=== PATIENT | male | born 1990 | race American Indian/Alaskan Native ===

== ENCOUNTER 2017-09-24 01:29 | Emergency (ER) | payer OTHER ==
[2017-09-24 01:47] VITALS: BP 168/100
[2017-09-24] MEDS ORDERED: ATROVENT IH ONE ×2 (01:56→02:18)
[2017-09-24] MEDS ORDERED: PROVENTIL IH ONE ×4 (01:56→04:12)
[2017-09-24] MEDS ORDERED: MAGNESIUM SULFATE 2GM/50ML 2 GM/50 ML BAG IV ONE ×2 (03:57→04:01)
--- NOTE | 2017-09-24 05:09 | Emergency Department Report ---
ED Shortness of Breath HPI - General Chief Complaint: Adult Asthma Stated Complaint: ASTHMA Time Seen by Provider: 09/24/17 05:03 Source: patient, family Mode of arrival: Ambulatory Limitations: No Limitations, Physical Limitation (patient is very short of breath and has mild autism which limits his ability to give appropriate history) - History of Present Illness Initial Comments: 27-year-old male with the chief complaint of shortness of breath and wheezing. His mother is here with him. According to the patient, he's been having shortness of breath and wheezing since Sunday. That is 2 days ago. Patient has audible wheezing and is in respiratory distress. Respiratory therapist is here and started him immediately on 5 mg of albuterol and point follow-up for .5 milligrams of Atrovent. Mr. Jade has mild autism, per his mother. He is currently out of albuterol and all his medicine for his asthma. They are in between doctors. MD Complaint: shortness of breath -: days(s) (2) Severity: severe Known History Of: asthma Context: recent URI - Related Data Previous Rx's Medication Instructions Recorded Last Taken Type ALBUTEROL Inhaler [ProAir HFA 2 puff IH QID PRN #1 box 09/24/17 Unknown Rx Inhaler] ALBUTEROL NEB's [Proventil 0.083% 2.5 mg IH QID PRN #1 neb 09/24/17 Unknown Rx NEBS] Fluticasone (Nf) [Flovent 220 2 puff IH BID #1 puff 09/24/17 Unknown Rx MCG/PUFF HFA] Ipratropium [Atrovent] 0.5 mg IH Q6HRT #1 box 09/24/17 Unknown Rx Allergies Allergy/AdvReac Type Severity Reaction Status Date / Time No Known Allergies Allergy Verified 09/24/17 03:13 ED Review of Systems ROS: Stated complaint: ASTHMA Other details as noted in HPI Constitutional: denies: chills, fever Eyes: denies: eye pain, eye discharge, vision change ENT: denies: ear pain, throat pain Respiratory: cough, shortness of breath, wheezing Cardiovascular: denies: chest pain, palpitations Endocrine: no symptoms reported Gastrointestinal: denies: abdominal pain, nausea, diarrhea Genitourinary: denies: urgency, dysuria Musculoskeletal: denies: back pain, joint swelling, arthralgia Skin: denies: rash, lesions Neurological: denies: headache, weakness, paresthesias Psychiatric: denies: anxiety, depression Hematological/Lymphatic: denies: easy bleeding, easy bruising ED Past Medical Hx - Past Medical History Previous Medical History?: Yes Hx Asthma: Yes Additional medical history: autism - Social History Smoking Status: Never Smoker - Medications Home Medications: Home Medications Medication Instructions Recorded Confirmed Last Taken Type ALBUTEROL Inhaler [ProAir HFA 2 puff IH QID PRN #1 box 09/24/17 Unknown Rx Inhaler] ALBUTEROL NEB's [Proventil 0.083% 2.5 mg IH QID PRN #1 neb 09/24/17 Unknown Rx NEBS] Fluticasone (Nf) [Flovent 220 2 puff IH BID #1 puff 09/24/17 Unknown Rx MCG/PUFF HFA] Ipratropium [Atrovent] 0.5 mg IH Q6HRT #1 box 09/24/17 Unknown Rx ED Physical Exam - General Limitations: No Limitations, Language Barrier General appearance: alert, in distress (respiratory distress with audible wheezing tachypnea and use of accessory muscles) - Head Head exam: Present: atraumatic, normocephalic - Eye Eye exam: Present: EOMI - ENT ENT exam: Present: mucous membranes moist - Neck Neck exam: Present: normal inspection, full ROM - Respiratory Respiratory exam: Present: respiratory distress, wheezes, accessory muscle use - Cardiovascular Cardiovascular Exam: Present: regular rate, tachycardia - GI/Abdominal GI/Abdominal exam: Present: soft. Absent: distended, tenderness, guarding - Rectal Rectal exam: Present: deferred - Extremities Exam Extremities exam: Present: normal inspection, full ROM - Back Exam Back exam: Present: normal inspection, full ROM - Neurological Exam Neurological exam: Present: alert, oriented X3, CN II-XII intact - Psychiatric Psychiatric exam: Present: normal affect, normal mood - Skin Skin exam: Present: warm, dry, intact, normal color. Absent: rash ED Course Vital Signs 09/24/17 09/24/17 09/24/17 01:36 02:02 02:30 Temperature 97.8 F Pulse Rate 110 H Pulse Rate [ 103 H 102 H Posterior Bilateral Throughout] Respiratory 20 Rate Respiratory 26 H 20 Rate [Posterior Bilateral Throughout] Blood Pressure 168/100 O2 Sat by Pulse 97 Oximetry 09/24/17 09/24/17 03:10 03:29 Temperature 97.6 F Pulse Rate 104 H Pulse Rate [ 93 H Posterior Bilateral Throughout] Respiratory 22 Rate Respiratory 20 Rate [Posterior Bilateral Throughout] Blood Pressure 168/100 O2 Sat by Pulse 94 Oximetry - Reevaluation(s) Reevaluation #1: 09/24/17 05:11 Patient has improved significantly. Most of the wheezing went away after 2 g of magnesium sulfate administered IV. ED Medical Decision Making - Radiology Data Radiology results: image reviewed (chest x-ray: Negative) - Medical Decision Making This patient has improved and has a history of asthma with medication and chest x-ray is clear send him home. Follow-up with doctor in 2 days or return to the ER if symptoms return and cannot be treated at home. Critical Care Time: Yes Critical care time in (mins) excluding proc time.: 30 Critical care attestation.: If time is entered above; I have spent that time in minutes in the direct care of this critically ill patient, excluding procedure time. [facility] ED Disposition Clinical Impression: Respiratory distress Acute asthma exacerbation Qualifiers: Asthma severity: severe Asthma persistence: unspecified Qualified Code(s): J45.901 - Unspecified asthma with (acute) exacerbation Disposition: DC-01 TO HOME OR SELFCARE Is pt being admited?: No Does the pt Need Aspirin: No Condition: Stable Instructions: Asthma (ED) Prescriptions: ALBUTEROL Inhaler [ProAir HFA Inhaler] 2 puff IH QID PRN #1 box PRN Reason: Shortness Of Breath ALBUTEROL NEB's [Proventil 0.083% NEBS] 2.5 mg IH QID PRN #1 neb PRN Reason: Wheezing Fluticasone (Nf) [Flovent 220 MCG/PUFF HFA] 2 puff IH BID #1 puff Ipratropium [Atrovent] 0.5 mg IH Q6HRT #1 box Referrals: PRIMARY CARE, [Primary Care Provider] - 3-5 Days Time of Disposition: 05:47
--- NOTE | 2017-09-24 05:27 | XRay Report ---
FINAL REPORT EXAM: XR CHEST 1V AP HISTORY: sob TECHNIQUE: A portable view of the chest was submitted. FINDINGS: The heart size and mediastinum appear normal. The lungs are clear. The lungs are not congested. The bones and soft tissues reveal a dextroscoliosis of the thoracolumbar spine. IMPRESSION: No active chest disease.
== END 2017-09-24 05:30 | disposition home or self-care (01) ==
LOC: ED 01:29
DX: J45.901 Unspecified asthma with (acute) exacerbation (principal); F84.0 Autistic disorder
CPT/HCPCS: 71045; 94640; 96365; 96375; 99291; J2930; J3475